=== PATIENT | female | born 1945 | race African-American/Black ===

== ENCOUNTER → 2018-02-02 | Day surgery (SDC) | payer OTHER ==
--- NOTE | 2018-02-03 14:56 | PATH ---
Cytology Non-Gynecological Report Patient Name: ENEDINA ANGEL [facility]. Rec. #: [id number] /Age/Gender: 1945 (Age: 72) / F Account: [id number] Location: RADIOLOGY INTER Taken: 02/02/2018 Received: 02/02/2018 Reported: 02/03/2018 Physicians: Jonas Barnett M.D. Specimen(s) Received THYROID FNA RIGHT LOBE Clinical History Right thyroid nodule, 2.3 x 2.5 x 2.2 cm Final Diagnosis THYROID, RIGHT, FINE NEEDLE ASPIRATION: SATISFACTORY FOR EVALUATION. BETHESDA CLASS II: BENIGN. CYTOLOGIC FINDINGS ARE CONSISTENT WITH A BENIGN FOLLICULAR NODULE WITH CYSTIC CHANGE. SMALL FOLLICULAR CELLS AND FOCAL REACTIVE CHANGES IN A BACKGROUND OF ABUNDANT COLLOID AND SCATTERED MACROPHAGES PRESENT. Electronically Signed Patsy Thorne M.D. Gross Description Received are eight direct smears, four of which are air-dried and Diff-Quik stained, and four of which are alcohol fixed and Pap stained. Also received is 20 ml of bloody formalin from which one cellblock is prepared.
== END | disposition home or self-care (01) ==
LOC: JRADIR 09:42
PROVIDERS: ATTEND Internal Medicine Endocrinology, Diabetes & Metabolism
PROC: 0G9G3ZX Drainage of Left Thyroid Gland Lobe, Percutaneous Approach, Diagnostic (ICD-10-PCS; principal; 2018-02-02)
DX: E04.1 Nontoxic single thyroid nodule (principal)
CPT/HCPCS: 76942; 88173; 88305-TC

== ENCOUNTER 2020-06-17 13:47 | Inpatient (IN) | payer OTHER ==
[2020-06-17] MEDS ORDERED: ACETAMINOPHEN 1000 MG/100 ML VIAL (NON FORMULARY) IVPB ONE (14:58)
[2020-06-17] MEDS ORDERED: SODIUM CHLORIDE 0.9% 500 ML INFUS.BAG IV ONE ×2 (14:58→17:22)
[2020-06-17] MEDS ORDERED: ACETAMINOPHEN INJECTION 100 ML IVPB ONE (15:11)
[2020-06-17 16:41] LABS: BASO % 0.2 % (0-2.0); EOS % 0.1 % (0-4.5); HEMATOCRIT 38.9 % (32.4-45.2); HEMOGLOBIN 12.8 GM/dL (10.7-15.3); LYMPH % 4.2 % (8-40); MCH 27.5 pg (25.7-33.7); MEAN CELL VOLUME 83.5 fl (80-96); MEAN PLT VOLUME 7.8 fl (7.5-11.1); MONO % 5.6 % (3.8-10.2); NEUT % 89.9 % (42.8-82.8); PLATELET COUNT 364 K/MM3 (134-434); RBC 4.66 M/mm3 (3.60-5.2); RDW 15.7 % (11.6-15.6); WHITE BLOOD COUNT 22.6 K/mm3 (4.0-10.0)
[2020-06-17 16:59] LABS: BLOOD UREA NITROGEN 17.9 mg/dL (7-18); CALCIUM 9.5 mg/dL (8.5-10.1); MAGNESIUM 2.1 mg/dL (1.8-2.4)
[2020-06-17 17:01] LABS: INR 1.26 (0.83-1.09); PROTHROMBIN TIME (PATIENT) 15.1 SEC (9.7-13.0)
[2020-06-17 17:02] LABS: CREATININE 1.5 mg/dL (0.55-1.3)
[2020-06-17 17:04] LABS: ACTIVATED PTT 32.3 SECONDS (25.2-36.5); TOT PROT 8.5 g/dl (6.4-8.2)
[2020-06-17 17:05] LABS: ANISOCYTOSIS 0; MACROCYTOSIS 0; PLATELET ESTIMATE NORMAL
[2020-06-17 17:09] LABS: LACTIC ACID 3.1 mmol/L (0.4-2.0)
[2020-06-17 17:23] LABS: VENOUS BASE EXCESS 0.8 mmol/L (-2-2); VENOUS O2 SATURATION 32.3 % (70-80); VENOUS PCO2 56.8 mmHg (38-52); VENOUS PH 7.312 (7.310-7.410)
[2020-06-17] MEDS ORDERED: PIPERACILLIN/TAZOB 2.25 GM 2.25 GM in DEXTROSE 5%-WATER - 50 ML IVPB ONE (19:45)
[2020-06-17] MEDS ORDERED: PIPERACILLIN/TAZOB 2.25 GM 2.25 GM/50 ML BAG IVPB ONE (20:37)
[2020-06-17] MEDS ORDERED: ATORVASTATIN CA 10 MG TABLET (FP) PO ONE (23:54)
[2020-06-17] MEDS: SODIUM CHLORIDE 1,000 ML IV SCH (23:56)
[2020-06-17] MEDS ORDERED: ATORVASTATIN CA 10 MG TABLET (FP) ONE (23:58)
[2020-06-18] MEDS: SODIUM CHLORIDE 1,000 ML IV SCH ×3 (04:26→21:22)
[2020-06-18 04:42] VITALS: BMI 22.1
[2020-06-18 06:32] LABS: EPI CELLS 13 /uL (0-25.1); HYALINE CASTS 3 /uL (0-3.1); URINE APPEARANCE CLEAR; URINE BACTERIA 89 /uL (0-1359); URINE BILIRUBIN NEGATIVE (NEGATIVE); URINE COLOR YELLOW; URINE GLUCOSE (UA) 3+ (NEGATIVE); URINE KETONE TRACE (NEGATIVE); URINE LEUK ESTERASE NEGATIVE (NEGATIVE); URINE NITRITE NEGATIVE (NEGATIVE); URINE PROTEIN 1+ (NEGATIVE); URINE RBC 16 /uL (0-23.9); URINE UROBILINOGEN 0.2 mg/dL (0.2-1.0); URINE WBC 34 /uL (0-25.8)
[2020-06-18] MEDS: INSULIN SLIDING SCALE (NOVOLOG) 1 VIAL SQ SCH ×4 (06:39→21:22)
[2020-06-18 08:21] LABS: BASO % 0.1 % (0-2.0); EOS % 0.4 % (0-4.5); HEMATOCRIT 29.1 % (32.4-45.2); HEMOGLOBIN 9.8 GM/dL (10.7-15.3); LYMPH % 4.6 % (8-40); MCH 27.4 pg (25.7-33.7); MCHC 33.8 g/dl (32.0-36.0); MEAN CELL VOLUME 81.3 fl (80-96); MEAN PLT VOLUME 7.1 fl (7.5-11.1); MONO % 6.4 % (3.8-10.2); NEUT % 88.5 % (42.8-82.8); PLATELET COUNT 250 K/MM3 (134-434); RBC 3.58 M/mm3 (3.60-5.2); RDW 15.5 % (11.6-15.6); WHITE BLOOD COUNT 15.6 K/mm3 (4.0-10.0)
[2020-06-18 08:27] LABS: INR 1.6 (0.83-1.09); PROTHROMBIN TIME (PATIENT) 19.4 SEC (9.7-13.0)
[2020-06-18] MEDS ORDERED: cefTRIAXone SODIUM 1 GM VIAL ONE (08:51)
[2020-06-18] MEDS ORDERED: DEXTROSE 5%-WATER - 50 ML IVPB ONE (08:52)
[2020-06-18 08:58] LABS: BLOOD UREA NITROGEN 13.3 mg/dL (7-18); CHOLESTEROL 129 mg/dL (50-200); MAGNESIUM 1.6 mg/dL (1.8-2.4)
[2020-06-18 08:59] LABS: LDL CHOLESTEROL (ONLY SJRH) 44 mg/dL (5-100); TRIGLYCERIDES 123 mg/dL (0-150)
[2020-06-18 09:01] LABS: CREATININE 0.9 mg/dL (0.55-1.3)
[2020-06-18 09:02] LABS: BILIRUBIN,TOTAL 0.7 mg/dL (0.2-1); HDL CHOLESTEROL 51 mg/dL (40-60)
[2020-06-18 09:08] LABS: ALBUMIN 2.4 g/dl (3.4-5.0); CALCIUM 7.1 mg/dL (8.5-10.1); PHOSPHOROUS 1.2 mg/dL (2.5-4.9); TOT PROT 5.5 g/dl (6.4-8.2)
[2020-06-18] MEDS: KCL 10 MEQ IVPB 10 MEQ/100 ML INFUS.BAG IVPB SCH ×2 (10:55→15:31)
[2020-06-18] MEDS: CEFTRIAXONE 1 GM in DEXTROSE 5%-WATER - 50 ML IVPB SCH (13:49)
[2020-06-18] MEDS ORDERED: PT OWN MED DRAWER 7, Y5N ONE (17:07)
[2020-06-18] MEDS: HEPARIN NA (PORCINE) 5,000 UNITS/ML 1ML VIAL SQ SCH (21:22)
[2020-06-19] MEDS: INSULIN SLIDING SCALE (NOVOLOG) 1 VIAL SQ SCH ×4 (07:00→21:06)
[2020-06-19 09:19] LABS: BASO % 0.1 % (0-2.0); EOS % 0.6 % (0-4.5); HEMATOCRIT 28.7 % (32.4-45.2); HEMOGLOBIN 9.6 GM/dL (10.7-15.3); LYMPH % 6.5 % (8-40); MCH 27.5 pg (25.7-33.7); MCHC 33.5 g/dl (32.0-36.0); MEAN PLT VOLUME 7.4 fl (7.5-11.1); MONO % 6.7 % (3.8-10.2); NEUT % 86.1 % (42.8-82.8); PLATELET COUNT 244 K/MM3 (134-434); RDW 15.6 % (11.6-15.6)
[2020-06-19] MEDS ORDERED: cefTRIAXone SODIUM 1 GM VIAL ONE (09:25)
[2020-06-19] MEDS ORDERED: DEXTROSE 5%-WATER - 50 ML IVPB ONE ×2 (09:25→17:02)
[2020-06-19 09:26] LABS: INR 1.45 (0.83-1.09); PROTHROMBIN TIME (PATIENT) 17.4 SEC (9.7-13.0)
[2020-06-19] MEDS ORDERED: PT OWN MED DRAWER 7, Y5N ONE (09:28)
[2020-06-19] MEDS: CEFTRIAXONE 1 GM in DEXTROSE 5%-WATER - 50 ML IVPB SCH (09:36)
[2020-06-19] MEDS: HEPARIN NA (PORCINE) 5,000 UNITS/ML 1ML VIAL SQ SCH ×2 (09:37→21:06)
[2020-06-19] MEDS: SODIUM CHLORIDE 1,000 ML IV SCH (09:45)
[2020-06-19 10:16] LABS: MAGNESIUM 1.9 mg/dL (1.8-2.4)
[2020-06-19 10:17] LABS: ALBUMIN 2.4 g/dl (3.4-5.0)
[2020-06-19 10:18] LABS: BLOOD UREA NITROGEN 12.7 mg/dL (7-18)
[2020-06-19 10:21] LABS: BILIRUBIN,TOTAL 0.7 mg/dL (0.2-1); CREATININE 0.9 mg/dL (0.55-1.3)
[2020-06-19 11:55] LABS: CALCIUM 8.2 mg/dL (8.5-10.1)
[2020-06-19] MEDS ORDERED: PIPERACILLIN/TAZOBACTAM 3.375 GM VIAL IVPB ONE (17:02)
[2020-06-19] MEDS: PIPERACILLIN/TAZOB 3.375 GM 3.375 GM in DEXTROSE 5%-WATER - 50 ML IVPB SCH (17:10)
[2020-06-19] MEDS ORDERED: INSULIN (NOVOLOG) ASPART 100 UNITS/ML 10ML VIAL ONE (20:55)
[2020-06-19] MEDS: AMINO ACIDS 4.25%/D5W 1,000 ML IV SCH (21:05)
[2020-06-20] MEDS ORDERED: DEXTROSE 5%-WATER - 50 ML IVPB ONE ×4 (01:40→17:16)
[2020-06-20] MEDS ORDERED: PIPERACILLIN/TAZOBACTAM 3.375 GM VIAL IVPB ONE ×4 (01:40→17:15)
[2020-06-20] MEDS: PIPERACILLIN/TAZOB 3.375 GM 3.375 GM in DEXTROSE 5%-WATER - 50 ML IVPB SCH ×3 (01:54→17:29)
[2020-06-20] MEDS: INSULIN SLIDING SCALE (NOVOLOG) 1 VIAL SQ SCH ×4 (06:01→22:05)
[2020-06-20] MEDS: HEPARIN NA (PORCINE) 5,000 UNITS/ML 1ML VIAL SQ SCH ×3 (09:49→22:06)
[2020-06-20 11:07] LABS: BASO % 0.2 % (0-2.0); HEMATOCRIT 26.6 % (32.4-45.2); HEMOGLOBIN 9.1 GM/dL (10.7-15.3); LYMPH % 5.8 % (8-40); MCH 27.8 pg (25.7-33.7); MCHC 34.1 g/dl (32.0-36.0); MEAN CELL VOLUME 81.6 fl (80-96); MONO % 7.5 % (3.8-10.2); NEUT % 85.5 % (42.8-82.8); PLATELET COUNT 251 K/MM3 (134-434); RBC 3.26 M/mm3 (3.60-5.2); RDW 15.3 % (11.6-15.6); WHITE BLOOD COUNT 11.5 K/mm3 (4.0-10.0)
[2020-06-20 11:36] LABS: ALBUMIN 2.2 g/dl (3.4-5.0); CALCIUM 8.1 mg/dL (8.5-10.1); MAGNESIUM 2.1 mg/dL (1.8-2.4)
[2020-06-20 11:39] LABS: CREATININE 0.8 mg/dL (0.55-1.3)
[2020-06-20 11:41] LABS: BILIRUBIN,TOTAL 0.6 mg/dL (0.2-1); TOT PROT 5.9 g/dl (6.4-8.2)
[2020-06-20] MEDS: POTASSIUM CHLORIDE TABS 20 MEQ TABLET.ER (FP) PO ONE ×2 (16:39→17:38)
[2020-06-20] MEDS: AMINO ACIDS 4.25%/D5W 1,000 ML IV SCH (17:49)
[2020-06-21] MEDS ORDERED: DEXTROSE 5%-WATER - 50 ML IVPB ONE ×2 (01:07→09:19)
[2020-06-21] MEDS ORDERED: PIPERACILLIN/TAZOBACTAM 3.375 GM VIAL IVPB ONE ×2 (01:07→09:19)
[2020-06-21] MEDS: PIPERACILLIN/TAZOB 3.375 GM 3.375 GM in DEXTROSE 5%-WATER - 50 ML IVPB SCH ×2 (01:57→09:34)
[2020-06-21] MEDS: INSULIN SLIDING SCALE (NOVOLOG) 1 VIAL SQ SCH ×2 (06:07→11:53)
[2020-06-21] MEDS ORDERED: ACETAMINOPHEN 325 MG TABLET (FP) PO PRN (06:17)
[2020-06-21] MEDS: HEPARIN NA (PORCINE) 5,000 UNITS/ML 1ML VIAL SQ SCH (09:33)
[2020-06-21 11:13] LABS: BASO % 0.7 % (0-2.0); EOS % 1.5 % (0-4.5); HEMOGLOBIN 9.6 GM/dL (10.7-15.3); LYMPH % 10.1 % (8-40); MCH 27.8 pg (25.7-33.7); MCHC 34.3 g/dl (32.0-36.0); MEAN CELL VOLUME 81.2 fl (80-96); MEAN PLT VOLUME 7.5 fl (7.5-11.1); MONO % 6.7 % (3.8-10.2); PLATELET COUNT 288 K/MM3 (134-434); RBC 3.45 M/mm3 (3.60-5.2); RDW 15.9 % (11.6-15.6); WHITE BLOOD COUNT 8.7 K/mm3 (4.0-10.0)
[2020-06-21 11:31] LABS: CALCIUM 8.7 mg/dL (8.5-10.1)
[2020-06-21 11:32] LABS: ALBUMIN 2.6 g/dl (3.4-5.0); BLOOD UREA NITROGEN 9.9 mg/dL (7-18)
[2020-06-21 11:36] LABS: BILIRUBIN,TOTAL 0.6 mg/dL (0.2-1); TOT PROT 6.6 g/dl (6.4-8.2)
[2020-06-21] MEDS ORDERED: AMOX TR/POT CLAV 875MG/125MG TABLETS (FP) PO SCH (13:13)
[2020-06-21 13:37] VITALS: BP 137/95; PULSE 75; TEMP 98.7
== END 2020-06-21 18:28 | disposition home or self-care (01) | DRG 872 ==
LOC: JER 13:47 → JERBED 19:48 → J4S 06-18 04:06 → J7W 06-19 18:39
PROVIDERS: ADMIT Hospitalist; ATTEND Nurse Practitioner Acute Care
DX: A41.9 Sepsis, unspecified organism (principal); E87.2 Acidosis; K80.00 Calculus of gallbladder with acute cholecystitis without obstruction; N17.9 Acute kidney failure, unspecified; I10 Essential (primary) hypertension; E78.5 Hyperlipidemia, unspecified; E11.9 Type 2 diabetes mellitus without complications; Z79.84 Long term (current) use of oral hypoglycemic drugs; Z85.41 Personal history of malignant neoplasm of cervix uteri; Z85.51 Personal history of malignant neoplasm of bladder; Z20.822 Contact with and (suspected) exposure to COVID-19
CPT/HCPCS: 36415; 71045-TC-FY; 76705-TC; 80053; 80061; 81003; 82803; 82962; 83540; 83550; 83605; 83690; 83721; 83735; 84100; 84484; 85025; 85610; 85730; 86850; 86900; 86901; 87040; 87086; 93005; 93010; 97116-GP; 97161-GP; 99285-25; C9803; J0131; J1644; U0003; U0005